=== PATIENT | female | born 1980 | race African-American/Black ===

== ENCOUNTER 2022-09-09 17:45 | Emergency (ER) | payer OTHER, BC, SELFPAY ==
--- NOTE | ~2022-09-09 | XR_ITS ---
EXAMINATION: XR chest 2V DATE: 09/09/2022 18:40 INDICATION: Left-sided chest pain TECHNIQUE: PA and lateral views of the chest are obtained. COMPARISON: None available FINDINGS: The lungs are free of acute opacities. No pleural effusion or pneumothorax. The cardiomedia stinal silhouette is normal. The visualized bones and soft tissues are unremarkable. IMPRESSION: 1. No acute cardiopulmonary abnormality. Reviewed, dictated and finalized at location F.
--- NOTE | 2022-09-09 17:48 | ECG_ITS ---
Measurements Intervals [place] Rate: 58 P: 36 WI: 171 QRS: 26 QRSD: 92 T: 25 QT: 402 QTc: 397 Interpretive Statements SINUS BRADYCARDIA OTHERWISE EKG NO PREVIOUS ECG AVAILABLE FOR COMPARISON Electronically Signed On 09-09-2022 18:42:32 CDT by Yeny Chen M.D.
[2022-09-09 18:06] LABS: Basophils Percent Auto 0.3 % (0.2-1.2); Eosinophils Absolute Auto 0.1 K/mm3 (0-0.3); Eosinophils Percent Auto 1.4 % (0-4.4); Hematocrit 41.6 % (37.0-47.0); Hemoglobin 13.4 g/dL (12.0-15.0); Immature Granulocyte Absolute 0.01 K/mm3 (0.00-0.031); Immature Granulocyte Percent A 0.2 % (0-0.5); Lymphocytes Absolute Auto 2.83 K/mm3 (0.9-3.2); Lymphocytes Percent Auto 44.7 % (18.3-44.2); Mean Corpuscular HGB Conc 32.2 g/dl (32-36); Mean Corpuscular Hemoglobin 30.8 pg (26-34); Mean Corpuscular Volume 95.6 fl (80-100); Mean Platelet Volume 10.8 fl (7.4-10.4); Monocytes Absolute Auto 0.5 K/mm3 (0.1-0.6); Monocytes Percent Auto 7.6 % (2.6-8.5); Neutrophils Absolute Auto 2.9 K/mm3 (1.3-6.7); Neutrophils Percent Auto 45.8 % (45.5-73.1); Platelet Count Result 182 k/mm3 (150-375); Red Blood Count 4.35 M/mm3 (4.2-5.4); Red Cell Distribution Width 12.4 % (11.5-14.5); White Blood Count 6.3 K/mm3 (4.5-10.0)
[2022-09-09 18:17] LABS: Alanine Aminotransferase 16 U/L (6-35); Albumin Level 4.3 g/dL (3.5-5.1); Alkaline Phosphatase 70 U/L (38-126); Anion Gap 9 mmol/L (8-16); Aspartate Amino Transferase 24 U/L (14-36); Bilirubin,Total 0.3 mg/dL (0.2-1.3); Blood Urea Nitrogen 15 mg/dL (7-17); Calcium 9.2 mg/dL (8.4-10.2); Carbon Dioxide 25 mmol/L (22-30); Chloride 106 mmol/L (98-107); Estimated Glomerular Filt Rate > 60; Glucose 95 mg/dL (65-110); Lipase 49 U/L (23-300); Potassium 3.7 mmol/L (3.4-5.0); Prothrombin Time 13.1 Seconds (11.1-14.7); Sodium 140 mmol/L (137-145)
[2022-09-09 18:18] LABS: Partial Thromboplastin Time 30.2 SECONDS (22.3-36.8)
[2022-09-09 18:27] LABS: Troponin I < 0.012 ng/mL (0.000-0.034)
[2022-09-09 18:59] VITALS: BP 125/75; PULSE 58; RESP 14; TEMP 36.4; O2SAT 98
[2022-09-09 20:30] VITALS: BP 116/77; PULSE 60; RESP 18; O2SAT 100
[2022-09-09 20:31] VITALS: PULSE 56
--- NOTE | 2022-09-09 20:31 | PC.NURSE ---
EDP at bedside assessing pt at this time.
--- NOTE | 2022-09-09 20:44 | ED.GENADULT ---
HPI - General Adult General Chief complaint: Arrhythmia/Palpitations Stated complaint: left arm pain, palpitations Time Seen by Provider: 09/09/22 20:21 History of Present Illness HPI narrative: Patient is a 42-year-old female who presents ER with 2 concerns. First concern is she has had some forearm aching that began today. Radiates up the arm. No aggravating factors but has been taking some ibuprofen with improvement. No chest pain or chest pressure. She does report she feels like she has been having skipped heartbeats on occasion. No lightheadedness. No dyspnea. Got her nervous. No history of heart disease. Related Data Allergies Allergy/AdvReac Type Severity Reaction Status Date / Time No Known Allergies Allergy Verified 09/09/22 20:28 Review of Systems Review of Systems: All systems reviewed & are unremarkable except as noted in HPI and below Constitutional: Constitutional: Denies chills, Denies fatigue and Denies fever(s) ENT: Denies nasal congestion and Denies sore throat Cardiovascular: Cardiovascular: Denies chest pain, Denies rapid heart rate, Denies radiating jaw, neck or arm pain and Reports slow heart rate Comments: Palpitations Respiratory: Respiratory: Denies cough and Denies dyspnea Gastrointestinal: Gastrointestinal: Denies abdominal pain, Denies nausea and Denies vomiting Musculoskeletal: Musculoskeletal: Denies back pain, Denies arthralgias and Denies joint swelling Comments: Left forearm discomfort Neurologic: Denies syncope, Denies focal weakness and Denies numbness PMFSH Past Medical History Medical History (Updated 09/09/22 @ 20:48 by Homero Daniels MD) Healthy female adult Surgical History Surgical History (Updated 09/09/22 @ 20:48 by Homero Daniels MD) History of augmentation of both breasts Social History Social History Smoking status: Never smoker Alcohol intake: current Exam Narrative: GENERAL: Well-appearing, well-nourished, and in no acute distress. HEAD: Normocephalic, atraumatic. CHEST: Clear to auscultation. No respiratory distress. HEART: Regular rate and rhythm. Normal peripheral pulses. ABDOMEN: Soft, nontender, nondistended. EXTREMITIES: Normal range of motion. No edema. Mild discomfort left arm with carpal tunnel compression test. SKIN: Warm, dry, no rash. NEURO: Alert and oriented x3. PSYCH: Normal mood and affect. Course Course Emergency Course: Patient informed of results. Patient may be having PVCs or PACs that caused her to have the skipped heartbeat. Patient is in a sinus rhythm. Patient also may be having some carpal tunnel discomfort in her left arm but the discomfort is not associate with any sort of chest pain or palpitations. 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 Recommend follow-up with PCP. Vital Signs Vital signs: Vital Signs Temperature 97.5 F L 09/09/22 18:59 Pulse Rate 58 L 09/09/22 18:59 Respiratory Rate 14 09/09/22 18:59 Blood Pressure 125/75 09/09/22 18:59 Pulse Oximetry 98 09/09/22 18:59 Oxygen Delivery Room Air 09/09/22 18:59 Temperature 97.5 F L 09/09/22 18:59 Pulse Rate 56 L 09/09/22 20:31 Respiratory Rate 18 09/09/22 20:30 Blood Pressure 116/77 09/09/22 20:30 Pulse Oximetry 100 09/09/22 20:30 Oxygen Delivery Room Air 09/09/22 18:59 Medical Decision Making Vital Signs Vital Signs: Vital Signs Temperature 97.5 F L 09/09/22 18:59 Pulse Rate 58 L 09/09/22 18:59 Respiratory Rate 14 09/09/22 18:59 Blood Pressure 125/75 09/09/22 18:59 Pulse Oximetry 98 09/09/22 18:59 Oxygen Delivery Room Air 09/09/22 18:59 Temperature 97.5 F L 09/09/22 18:59 Pulse Rate 56 L 09/09/22 20:31 Respiratory Rate 18 09/09/22 20:30 Blood Pressure 116/77 09/09/22 20:30 Pulse Oximetry 100 09/09/22 20:30 Oxygen Delivery Room Air 09/09/22 18:59 Lab Data Result diagrams: 09/09/22 17:59 09/09/22 17:59 Labs:
[2022-09-09 21:52] LABS: Troponin I < 0.012 ng/mL (0.000-0.034)
== END 2022-09-09 20:54 | disposition home or self-care (01) ==
LOC: ANHED 20:59
PROVIDERS: Emergency Medicine; Emergency Provider Emergency Medicine; PCP Nurse Practitioner Family
DX: R00.2 Palpitations (principal); M79.632 Pain in left forearm
CPT/HCPCS: 36415; 71046; 80053; 83690; 84484; 85025; 85610; 85730; 93005; 99283

== ENCOUNTER 2023-12-18 12:06 | Emergency (ER) | payer OTHER, SELFPAY ==
--- NOTE | ~2023-12-18 | CT_ITS ---
EXAMINATION: CT abdomen pelvis w con DATE: 12/18/2023 14:59 INDICATION: L flank/LLQ pain, tenderness TECHNIQUE: Computed tomography (CT) of the abdomen and pelvis was performed with 100 mL Omnipaque-350 intravenous contrast. Automated exposure control and iterative reconstruction technique were employe d. The dose-length product was 450.73 mGy-cm. COMPARISON: None. FINDINGS: Lower thorax: Bilateral breast implants. Liver: Normal. Biliary/Gallbladder: Gallbladder is normal. No bile duct dilation. Pancreas: No mass or duct dilation. Spleen: Normal. Adrenals:No mass. Kidneys: No suspicious mass, obstructing stone, or hydronephrosis. GI tract: Mild distal esophageal and gastric wall edema. Colonic submucosal fat as can be seen with c hronic IBD, obesity, chemotherapy treatment, and celiac disease. No small or large bowel dilation. No rmal appendix. Mesentery/Peritoneum: No ascites, mass, or free air. Retroperitoneum: No mass. Pelvis: Multiple uterine fibroids. Small bilateral simple ovarian cysts or dominant follicles. Normal urinary bladder. Soft Tissues: Soft tissues and body wall unremarkable. Bones: No acute osseous finding. IMPRESSION: Mild esophagitis/gastritis. Otherwise no acute abdominopelvic process detected. Reviewed, dictated and finalized at location K. [employer]
[2023-12-18 12:07] VITALS: BP 124/71; PULSE 83; RESP 18; TEMP 36.6; O2SAT 98
[2023-12-18 12:54] VITALS: BP 123/72; PULSE 74; RESP 17; TEMP 36.6; O2SAT 98
[2023-12-18 13:12] VITALS: PULSE 79
--- NOTE | 2023-12-18 13:17 | ED.DIZZY ---
HPI - Dizziness General Chief Complaint: Dizziness Stated Complaint: vaginal pain-dizziness Time Seen by Provider: 12/18/23 12:22 History of Present Illness HPI Narrative: Patient is a 43-year-old female presenting with syncope. Patient states patient had a positive test about a month ago. She then had an episode of vaginal bleeding last week for about a day. States that she passed some clots and then the bleeding resolved. States that she has had left-sided pelvic pain since that time. It goes from her left flank into her left groin. States that she has also been feeling lightheaded with standing and has passed out a couple times. No chest pain or shortness of breath. No leg swelling. States that she does have a history of an ectopic on the left and they did remove part of her tube. Her OB Gyne is Dr. Bello. Related Data Allergies Allergy/AdvReac Type Severity Reaction Status Date / Time codeine Allergy Swelling Verified 12/18/23 12:51 of Lip/Tongue/Throat Review of Systems Review of Systems: All systems reviewed & are unremarkable except as noted in HPI and below PMFSH Past Medical History Medical History Healthy female adult Surgical History Surgical History History of augmentation of both breasts Social History Social History Smoking status: Never smoker Alcohol intake: current Exam Narrative: GENERAL: Well-appearing, nontoxic, pleasant and cooperative HEAD: Normocephalic, atraumatic. EYES: PERRLA and EOMI. ENT: Mucous membranes moist. NECK: Supple. CHEST: Clear to auscultation. No respiratory distress. HEART: Regular rate and rhythm ABDOMEN: Soft, +LLQ tenderness w/o guarding or rebound EXTREMITIES: No edema. SKIN: Warm, dry, no rash. NEURO: No focal deficits. Alert and oriented x3. PSYCH: Normal mood and affect. Course Vital Signs Vital signs: Vital Signs Temperature 97.9 F 12/18/23 12:07 Pulse Rate 83 12/18/23 12:07 Respiratory Rate 18 12/18/23 12:07 Blood Pressure 124/71 12/18/23 12:07 Pulse Oximetry 98 12/18/23 12:07 Oxygen Delivery Room Air 12/18/23 12:07 Temperature 97.8 F 12/18/23 17:43 Pulse Rate 71 12/18/23 17:43 Respiratory Rate 18 12/18/23 17:43 Blood Pressure 106/65 12/18/23 17:43 Pulse Oximetry 100 12/18/23 17:43 Oxygen Delivery Room Air 12/18/23 12:07 MDM - Dizziness MDM Narrative Medical decision making narrative: Patient is a 43-year-old female presenting with left pelvic pain the setting of recent positive test. Vitals are stable. Exam remarkable for the above. Beta hCG is undetectable. Blood work with mildly elevated BUN to creatinine ratio. Otherwise no acute abnormalities. CT abdomen pelvis obtained which shows mild esophagitis but no other acute abnormalities. Orthostatic vital signs were normal. Patient received a L of fluids for dehydration. Patient with mild nausea, oral Zofran given patient is tolerating p.o. intake. Safe for outpatient management. Advised PCP follow-up. Appropriate return precautions given. Discharged in stable condition. Differential Diagnosis Differential diagnosis: Likely orthostatic hypotension and other (Dehydration, WAYNE, left lower quadrant pain) Medical Records Attestation: I reviewed the patient's medical records. Lab Data Attestation: I reviewed the patient's lab results. 12/18/23 13:21 12/18/23 13:21 Labs: Lab Results 12/18/23 12/18/23 12/18/23 Range/Units 13:21 13:27 13:36 WBC 5.3 (4.5-10.0) K/mm3 RBC 4.57 (4.2-5.4) M/mm3 Hgb 13.9 (12.0-15.0) g/dL Hct 43.6 (37.0-47.0) % MCV 95.4 (80-100) fl MCH 30.4 (26-34) pg MCHC 31.9 L (32-36) g/dl RDW 12.4 (11.5-14.5) % Plt Count 200
[2023-12-18 13:27] LABS: Basophils Percent Auto 0.2 % (0.2-1.2); Eosinophils Absolute Auto 0.1 K/mm3 (0-0.3); Eosinophils Percent Auto 1.1 % (0-4.4); Hematocrit 43.6 % (37.0-47.0); Hemoglobin 13.9 g/dL (12.0-15.0); Immature Granulocyte Absolute 0.01 K/mm3 (0.00-0.031); Immature Granulocyte Percent A 0.2 % (0-0.5); Lymphocytes Absolute Auto 1.74 K/mm3 (0.9-3.2); Lymphocytes Percent Auto 32.9 % (18.3-44.2); Mean Corpuscular HGB Conc 31.9 g/dl (32-36); Mean Corpuscular Hemoglobin 30.4 pg (26-34); Mean Corpuscular Volume 95.4 fl (80-100); Mean Platelet Volume 11.1 fl (7.4-10.4); Monocytes Absolute Auto 0.3 K/mm3 (0.1-0.6); Monocytes Percent Auto 6.2 % (2.6-8.5); Neutrophils Absolute Auto 3.1 K/mm3 (1.3-6.7); Neutrophils Percent Auto 59.4 % (45.5-73.1); Platelet Count Result 200 k/mm3 (150-375); Red Blood Count 4.57 M/mm3 (4.2-5.4); Red Cell Distribution Width 12.4 % (11.5-14.5); White Blood Count 5.3 K/mm3 (4.5-10.0)
[2023-12-18] MEDS: MORPHINE SULFATE (*CRX) 4 MG/ML INJ IV PUSH (13:28)
[2023-12-18] MEDS: SODIUM CHLORIDE 0.9% IV 1,000 ML 999 ML IV CONT (13:29)
[2023-12-18 13:37] LABS: Appearance Urine Clear (Clear); Bacteria Urine 1+ /hpf; Bilirubin Urine Negative (Negative); Blood Urine 1+ (Negative); Color Urine Yellow (Yellow); Glucose Urine UA Negative (Negative); Ketones Urine Negative (Negative); Leukocyte Esterase Ur Negative LEU/UL (Negative); Nitrate Urine Negative (Negative); Non Pathogenic Casts 0-2; Protein Urine Negative (Negative); Specific Grav Ur 1.022 (1.001-1.035); Squamous Epithelial Cell Urine Occasional /hpf (Few); Urobilinogen Urine 0.2 mg/dL (<2.0); WBC Urine 0-5 /hpf; pH Urine 6.5 (5.0-9.0)
[2023-12-18 13:37] LABS: INR 0.9; Prothrombin Time 12.7 Seconds (11.1-14.7)
[2023-12-18 13:38] LABS: Alanine Aminotransferase 17 U/L (6-35); Alkaline Phosphatase 60 U/L (38-126); Anion Gap 7 mmol/L (8-16); Aspartate Amino Transferase 22 U/L (14-36); Bilirubin,Total 0.3 mg/dL (0.2-1.3); Blood Urea Nitrogen 18 mg/dL (7-17); Calcium 9.2 mg/dL (8.4-10.2); Carbon Dioxide 30 mmol/L (22-30); Chloride 105 mmol/L (98-107); Estimated CRCL calculation 54 ml/min; Estimated Glomerular Filt Rate > 60; Glucose 90 mg/dL (65-110); Lipase 51 U/L (23-300); Partial Thromboplastin Time 31.5 SECONDS (22.3-36.8); Sodium 142 mmol/L (137-145)
[2023-12-18 13:45] LABS: Add Urine Microscopic? YES
[2023-12-18 13:54] LABS: Beta HCG Quantitative < 2.39 mIU/ML
[2023-12-18 15:14] VITALS: BP 110/72; PULSE 83; RESP 19; O2SAT 100
[2023-12-18 16:35] VITALS: BP 101/73; BP 114/72; BP 116/77; PULSE 63; PULSE 86; PULSE 90
[2023-12-18] MEDS: ONDANSETRON HCL ODT 4 MG TABLET PO (16:53)
[2023-12-18 17:43] VITALS: BP 106/65; PULSE 71; RESP 18; TEMP 36.6; O2SAT 100
== END 2023-12-18 17:45 | disposition home or self-care (01) ==
PROVIDERS: Emergency Provider Emergency Medicine; PCP Nurse Practitioner Family
DX: R10.32 Left lower quadrant pain (principal); R42 Dizziness and giddiness; K20.90 Esophagitis, unspecified without bleeding; K29.70 Gastritis, unspecified, without bleeding
CPT/HCPCS: 36415; 74177; 80053; 81001; 83690; 84702; 85025; 85610; 85730; 86850; 86900; 86901; 96361; 96374; 99284; A9270; J2270; J7030; Q9967

== ENCOUNTER 2024-09-28 03:02 | Day surgery (SDC) | payer OTHER, SELFPAY ==
--- NOTE | 2024-09-22 16:23 | PM.IMHP ---
H&P: HPI History of Present Illness Date/Time: 09/22/24 16:23 Chief Complaint: SLOANE Narrative: Desires surgical management of SLOANE Review of Systems Review of Systems: All systems reviewed & are unremarkable except as noted in HPI and below PMFSH Past Medical History Medical History Healthy female adult Surgical History Surgical History History of augmentation of both breasts Social History Social History Smoking status: Never smoker Alcohol intake: current Meds Home Medications and Allergies Home Medications Medication Instructions Recorded Confirmed Type ibuprofen 600 mg tablet 600 mg PO TID #20 tabs 09/09/22 Rx ondansetron 4 mg disintegrating 4 mg PO Q8H PRN nausea and 12/18/23 Rx tablet vomiting #14 tabs Allergies Allergy/AdvReac Type Severity Reaction Status Date / Time codeine Allergy Swelling Verified 09/06/24 07:20 of Lip/Tongue/Throat Exam Narrative: + urethrall mobility Assessment and Plan Assessment and plan (1) SLOANE (stress urinary incontinence, female): Code(s): N39.3 - Stress incontinence (female) (male) Status: Acute Assessment and Plan: urethral sling
[2024-09-24 08:17] VITALS: BMI 30.4
--- NOTE | 2024-09-24 08:24 | PC.NURSE ---
Report to the Outpatient Waiting Room, entrance under the green pavilion located off [facility], at time _1330_ on date _09/28/24_. Planned Procedure Time: __1530_.? Time changes happen often and if your time is changed the preop area will call you the afternoon before. - You and your visitor will be asked to self-screen and do not enter if you have any COVID symptoms. Please call surgeon if you need to reschedule. - A mask is optional within the hospital at this time. Patients may have clear liquids (water, carbonated beverages, clear teas, apple juice) until 3 hours prior to surgery with a maximum of 20 ounces. - No food from midnight until time of surgery and no smoking - Infants may have breast milk until 4 hours before surgery, infant formula 6 hours prior to surgery. - Children will be allowed to drink immediately following surgery.? If applicable, please bring a bottle or sippy cup to assist with drinking. Juice, water, soda, and popsicles are readily available.? For infants on formula, please bring formula the day of surgery.? Pacifiers are allowed. Take only the following medications with a SIP of water on the morning of surgery: __NONE DO NOT STOP ANY OF YOUR OTHER PRESCRIPTION MEDICATIONS PRIOR TO SURGERY EXCEPT THE FOLLOWING Medications to discontinue per physician ZEPBOUND- LAST DOSE 09/24/24 Date to take last dose Please no make-up, nail algerian, hairspray, perfume, deodorant, or body powder the day of surgery.? No jewelry (including any body piercings) or valuables the day of surgery, leave them at home.? Please take a shower or bath the night before, or the morning of, surgery with an antibacterial soap.? Wear comfortable, loose fitting clothing.? Children are encouraged to wear pajamas. - Jewelry must be removed prior to entering the operating room.? Rings and piercings that are not removed may be cut off. - The hospital will not accept responsibility for valuables.? - Please leave all valuables, including medications, at home the day of surgery. If you are going home after surgery, a licensed shuttle driver must drive you home.? - NO public transportation without another adult if you receive anesthesia. - We recommend that an adult stay with you for 24 hours following discharge. - We also recommend that you do not drive, make important decision, drink alcoholic beverages, or take any drugs that were not prescribed by your health care provider for at least 24 hours after your discharge time. For Pediatric surgeries, we recommend two adults accompany the child home. Follow any additional instructions given to you from your surgeon. Telephone instructions given to _PATIENT__and asked if any additional questions and then verbalized understanding. Patient advised to call surgeon office or pre surgery nurse liaison [phone] if any additional questions.
--- NOTE | 2024-09-28 04:50 | WPDHPUPDATE1 ---
History and Physical Update Update Date/Time: 09/28/24 04:50 History and Physical has been reviewed, including an updated exam of the patient. There are NO changes in the patient's condition. Risks, benefits, and alternatives have been discussed and questions answered. Patient agrees to proceed with procedure.
[2024-09-28 13:30] VITALS: BP 121/73; PULSE 74; RESP 16; TEMP 36.3; O2SAT 99; BMI 29.7
[2024-09-28] MEDS: LACTATED RINGERS 1,000 ML 30 ML IV CONT (13:30)
[2024-09-28 14:15] LABS: BEDSIDEPREGUCG Negative (Negative)
[2024-09-28 14:17] LABS: BEDSIDEPREGUCG Negative (Negative)
--- NOTE | 2024-09-28 14:35 | P.PNAN_ITS ---
Anes - Initial Pre Proc Eval Procedure: Operation Date: 09/28/24 15:30 Proposed Procedures p Urethral Sling - Kevin Her MD Date/Time: 09/28/24 14:35 Surgeon: Kevin Her MD Pre Op Diagnosis: stress incont Patient Data Age: 44 Gender: F Height: 1.6 m Weight: 76.15 kg Last Vital Signs Temp 36.3 C L 09/28/24 13:30 Pulse 74 09/28/24 13:30 Resp 16 09/28/24 13:30 BP 121/73 09/28/24 13:30 Pulse Ox 99 09/28/24 13:30 O2 Del Method Room Air 09/28/24 13:30 Allergies Allergy/AdvReac Type Severity Reaction Status Date / Time codeine Allergy Swelling Verified 09/06/24 07:20 of Lip/Tongue/Throat Home Medications Medication Instructions Recorded Confirmed Type albuterol 90 mcg/actuation aerosol 90 mcg inhalation PRN PRN 09/24/24 09/24/24 History inhaler Shortness Of Breath Or Wheezing esomeprazole magnesium 40 mg 40 mg PO DAILY 09/24/24 09/24/24 History capsule,delayed release (Nexium) famotidine 40 mg tablet 40 mg PO BID 09/24/24 09/24/24 History loratadine 10 mg tablet 10 mg PO DAILY 09/24/24 09/24/24 History tirzepatide (weight loss) 2.5 2.5 mg subcut WEEKLY 09/24/24 09/24/24 History mg/0.5 mL subcutaneous solution (Zepbound) Laboratory Tests 09/28/24 09/28/24 13:30 13:30 POC Urine HCG, Qual Negative Negative (Negative) (Negative) Patient hx anesthesia problems: none Family hx anesthesia problems: none Results Review: All pre-operative results and documents have been reviewed as part of the pre- operative evaluation. REPLACED BY [facility] Past Medical History Medical History (Updated 09/28/24 @ 14:36 by Vargas Jack MD) Asthma Overweight Surgical History Surgical History History of augmentation of both breasts Social History Social History Smoking status: Never smoker Alcohol intake: current Drinks per week: 1 Living arrangements: with family Dee Machuca Final PreProcedure Day of Procedure 09/28/24 14:35 Patient weight: overweight Heart: regular rate and rhythm Lungs: clear to auscultation Airway: Mallampati scale class II Neurological: alert and oriented Last oral intake: >/= 8 hours ASA classification: II Emergent: no Anesthetic plan: proceed Anesthesia type and monitoring: general GIVS and standard monitoring Results Review: All pre-operative results and documents have been reviewed as part of the pre- operative evaluation. Informed Consent: The patient's anesthetic plan and its attendant risks and benefits were discussed with the patient/family/POA. Questions were solicited and answers provided to the satisfaction of the patient/family/POA.
[2024-09-28] MEDS: BUPIVACAINE/EPINEPHRINE 0.5% 50 ML VIAL 10 ML INFILTRATE (15:01)
--- NOTE | 2024-09-28 15:10 | SUR.OPER ---
Bovie not used
[2024-09-28 15:34] VITALS: BP 119/70; PULSE 99; RESP 14; O2SAT 99
--- NOTE | 2024-09-28 15:34 | W.PM.PROC2 ---
Procedure Note - Detailed Date of Procedure 09/28/24 Pre-op Diagnosis Stress incontinence Post-op Diagnosis Same Procedure Performed mid urethral sling cystoscopy Surgeon Kevin Her MD Anesthesia MAC and Local Indications This is a female with confirm stress urinary incontinence. She desires surgical correction. She understands the risks of bleeding, infection, injury to the urinary tract, vaginal mesh extrusion, urinary tract mesh erosion, obstructive voiding requiring a secondary procedure, hip and leg pain, dyspareunia, inability to improve overactive bladder symptoms. She agrees to proceed. Description of Procedure She was correctly identified. Informed consent obtained. She was brought the operating room. She was given appropriate anesthesia. We used TIVA/MAC the as the sedation. She was given appropriate perioperative antibiotics. A time-out performed. I marked out the site of the inner thigh incisions. I anesthetized the skin and made those incisions. I anesthetized the anterior vaginal wall over the mid urethra. We used local with epinephrine. 10 cc was used to hydro dissect the anterior vaginal wall. I made a 1 cm incision. I dissected out laterally taking great care not to injure the refilled vaginal wall. I passed the helical trocars. First on the left. Then on the right. I did this from the thigh incision towards the vaginal incision. The sling was connected to the trocars and brought out through the thigh incision. I tensioned the sling appropriately. I cut and the plastic sheaths. I then closed the incision with a running 2 0 Vicryl. No vaginal packing or estrogen was used. On cystoscopy there is no tumors or surgical artifact. There was no surgical artifact in the urethra. I cut the excess sling material. Close incisions with glue. She was awakened and transferred to the PACU in stable condition. Start time 1508 Tensioning time 15 17 Stop time 1523 Time to 1st void 1541 Implants Urethral sling Estimated Blood Loss 30 Drains No Packing No Pathology None sent Complications No immediate complications Condition Stable Disposition PACU
[2024-09-28 15:55] LABS: Glucose Point of Care 91 mg/dl (65-105)
[2024-09-28 16:00] VITALS: BP 118/75; PULSE 62
[2024-09-28 16:30] VITALS: BP 120/76; PULSE 63
[2024-09-28] MEDS: ACETAMINOPHEN 500 MG TABLET 1000 MG PO (16:37)
[2024-09-28 17:00] VITALS: BP 117/74; PULSE 58
[2024-09-28] MEDS: fentaNYL CITRATE INJ (*CRX) 100 MCG/2 ML VIAL 25 MCG IV PUSH ×2 (17:08→17:11)
[2024-09-28 17:30] VITALS: BP 100/51; PULSE 64
== END 2024-09-28 17:45 | disposition home or self-care (01) ==
PROVIDERS: Visit Provider Urology
PROC: (CPT 57288; principal; 2024-09-28 15:30)
DX: N39.3 Stress incontinence (female) (male) (principal); Z79.1 Long term (current) use of non-steroidal anti-inflammatories (NSAID); Z79.51 Long term (current) use of inhaled steroids; Z79.85 Long-term (current) use of injectable non-insulin antidiabetic drugs; Z98.890 Other specified postprocedural states
CPT/HCPCS: 57288; 82948; A9270; C1771; J0690; J2003; J2250; J2704; J3010; J7030; J7120